=== PATIENT | male | born 1985 | race Caucasian/White ===

== ENCOUNTER → 2022-03-27 | Day surgery (SDC) | payer OTHER ==
[~2022-03-27] MED LIST: ACETAMINOPHEN 1000 MG/100 ML 100 ML IV ONE; ATROPINE SULFATE 1 MG/ML VIAL ONE; CEFUROXIME250 MG PO; DEXAMETHASONE SOD PHOS INJ 4 MG/ML SDV ONE; EPINEPHRINE HCL 1:1000 1ML 1 MG/ML AMP ONE; FENTANYL CITRATE/PF 100MCG/2 ML INJ ONE; KETOROLAC TROMETHAMINE 30 MG/ML VIAL ONE; LIDOCAINE 1% W/EPINEPHRINE 20 ML VIAL INJ ONE; LIDOCAINE HCL 2% LOCAL INJ 5 ML SDV VIAL INJ ONE; MIDAZOLAM HCL 2 MG/2 ML VIAL ONE; MUPIROCIN 2% OINT 22 GM TUBE ONE; OFLOXACIN 0.3% (OTIC SOL) 5 ML BTL ONE; ONDANSETRON HCL INJ 2MG/ML 2ML 2 MG/ML VIAL ONE; POVIDONE IODINE 0.05% 0.05 % ML PO ONE; PROPOFOL IV EMULSION 10 MG/ML 20 ML VIAL ONE; ROCURONIUM BROMIDE 10 MG/ML 5ML VIAL IV ONE; SEVOFLURANE INHAL SOLN 250 ML PEN BTL ONE; SUGAMMADEX SODIUM 200 MG/2 ML VIAL IV ONE
[2022-03-27 17:00] VITALS: BP 130/75
== END | disposition home or self-care (01) ==
LOC: OR 12:00
PROVIDERS: ATTEND Otolaryngology Otolaryngology/Facial Plastic Surgery
DX: H65.31 Chronic mucoid otitis media, right ear (principal); H72.91 Unspecified perforation of tympanic membrane, right ear; H90.A31 Mixed conductive and sensorineural hearing loss, unilateral, right ear with restricted hearing on the contralateral side; H90.42 Sensorineural hearing loss, unilateral, left ear, with unrestricted hearing on the contralateral side; J45.909 Unspecified asthma, uncomplicated; E66.9 Obesity, unspecified; Z68.31 Body mass index [BMI] 31.0-31.9, adult
CPT/HCPCS: 69631; C1713; J0131; J0171; J0461; J1100; J1885; J2001; J2250; J2405; J2704; J3010